=== PATIENT | female | born 1965 | race Hispanic/Latino ===

== ENCOUNTER 2020-11-13 06:08 | Day surgery (SDC) | payer BC ==
[2020-11-12 11:10] VITALS: BMI 46.2
--- NOTE | 2020-11-13 09:12 | OP ---
DATE OF PROCEDURE: 11/13/2020 PROCEDURE PERFORMED: Screening colonoscopy. PREOPERATIVE DIAGNOSIS: Colon cancer screening. DESCRIPTION OF PROCEDURE: Informed consent was obtained from the patient. She was sedated with total intravenous anesthesia. The rectal exam was performed and was normal. The colonoscope was advanced easily to the cecum, where the ileocecal valve and appendiceal orifice were clearly identified. The preparation quality was excellent. There was moderate diverticulosis in the left colon and mild diverticulosis in the right colon. The remainder of the colonic mucosa was completely normal throughout. Retroflexed views in the rectum were normal. IMPRESSION: 1. Moderate diverticulosis. 2. Otherwise normal colonoscopy. RECOMMENDATIONS: Repeat colonoscopy in 10 years for screening. Job ID: [id number]
[2020-11-13] MEDS ORDERED: PROPOFOL 200 MG/20 ML VIAL ONE (10:13)
[2020-11-13] MEDS ORDERED: Lidocaine 1% PF 5 ML VIAL ONE (10:13)
== END 2020-11-13 09:50 | disposition home or self-care (01) ==
LOC: SDC 06:08
PROVIDERS: ATTEND Internal Medicine Gastroenterology
PROC: 0DJD8ZZ Inspection of Lower Intestinal Tract, Via Natural or Artificial Opening Endoscopic (ICD-10-PCS; principal; 2020-11-13)
DX: Z12.11 Encounter for screening for malignant neoplasm of colon (principal); K57.31 Diverticulosis of large intestine without perforation or abscess with bleeding; K76.0 Fatty (change of) liver, not elsewhere classified; G47.33 Obstructive sleep apnea (adult) (pediatric); E07.9 Disorder of thyroid, unspecified; Z79.84 Long term (current) use of oral hypoglycemic drugs; Z79.899 Other long term (current) drug therapy; Z88.0 Allergy status to penicillin
CPT/HCPCS: J2704